=== PATIENT | male | born 1950 | race American Indian/Alaskan Native ===

== ENCOUNTER 2017-09-15 11:41 | Day surgery (SDC) | payer MEDICAID, MEDICARE ==
[2017-09-15 12:18] VITALS: BP 166/83
--- NOTE | 2017-09-15 14:10 | Ultrasound Report ---
ULTRASOUND SOFT TISSUE HEAD AND NECK History: Left facial nodule, mass. Findings: Grayscale ultrasound in the left parotid region demonstrates a slightly complex cystic nodule measuring 2.3 x 1.5 x 2.3 cm. Ultrasound-guided fine needle aspiration was requested by the physician. Informed consent was obtained. Sterile technique was utilized. 1% lidocaine for skin anesthesia. Using ultrasound guidance, a 22-gauge needle was advanced into the cystic lesion and 3 cc of chocolate colored fluid was aspirated. There is complete collapse of the lesion. The sample was placed in satellite and sent to pathology for analysis. Impression: Successful ultrasound-guided fine needle aspiration of the cystic left parotid lesion. 3 cc of brown fluid was aspirated.
--- NOTE | 2017-09-15 14:44 | Short Stay Summary ---
Short Stay Documentation Date of service: 09/15/17 - History Principal diagnosis: left facial mass, cyst H&P: obtained from office - Allergies and Medications Current Medications: Allergies No Known Allergies Allergy (Verified 09/15/17 12:02) Home Medications Medication Instructions Recorded Confirmed Last Taken Type Valsartan-Hctz 160-12.5 mg Tab 1 tab PO DAILY 09/15/17 09/15/17 09/15/17 History 1 - Physical exam General appearance: no acute distress HEENT: Other (left parotid nodule) - Brief post op/procedure progress note Date of procedure: 09/15/17 Pre-op diagnosis: nodule Post-op diagnosis: other (cyst) Anesthesia: local Findings: 2cm cystic lesion in left parotid gland region Surgeon: TINY GARCIA Estimated blood loss: none Pathology: list (3cc of chocolate colored fluid aspirated) Specimen disposition: to lab Condition: stable - Hospital course Hospital course: uneventful Short Stay Discharge Plan Follow up with: MARIA EUGENIA PATEL JR, MD [Primary Care Provider] - 7 Days
== END 2017-09-15 13:43 ==
LOC: CATHLABREC 11:41 → EDSTATUS 12:00 → CATHLABREC 13:43
PROVIDERS: ATTEND Otolaryngology
DX: K11.6 Mucocele of salivary gland (principal); Z79.899 Other long term (current) drug therapy
CPT/HCPCS: 20206; 76536; 76942; 88112